=== PATIENT | female | born 2000 | race African-American/Black ===

== ENCOUNTER 2022-05-26 16:35 | Emergency (ER) | payer MEDICAID ==
[~2022-05-26] VITALS: Ht 167.6 cm; Wt 48.0 kg
[2022-05-26] MEDS ORDERED: ACETAMINOPHEN 325MG TABLET PO ONE (17:00)
[2022-05-26] MEDS ORDERED: IBUP-2029 MT (20:31)
[2022-05-26] MEDS ORDERED: KETOROLAC 60MG/2ML VIAL IM ONE (20:45)
[2022-05-26 21:05] VITALS: BP 123/76
== END 2022-05-26 21:06 | disposition home or self-care (01) ==
LOC: ER 16:35
DX: S70.02XA Contusion of left hip, initial encounter (principal); V43.52XA Car driver injured in collision with other type car in traffic accident, initial encounter; Y93.89 Activity, other specified; Y92.410 Unspecified street and highway as the place of occurrence of the external cause
CPT/HCPCS: 73502; 96372; 99283; J1885